=== PATIENT | female | born 1945 | race African-American/Black ===

== ENCOUNTER 2017-06-30 21:53 | Emergency (ER) | payer OTHER ==
[~2017-06-30] VITALS: Ht 165.1 cm; Wt 117.9 kg
[~2017-06-30 21:53] MED LIST: CYCLOBENZAPRINE10 MG ORAL; FERROUS SULFAT325 MG ORAL; IBUPROFEN600 MG ORAL; MECLIZINE HCL25 MG ORAL; NAPROXEN500 M2 ORAL; NORCO 5-325 TA1 EACH ORAL; PROAIR HFA8.5 GM INH; TRAMADOL HCL50 MG ORAL
[2017-06-30 22:00] VITALS: BP 128/70
--- NOTE | 2017-06-30 22:22 | Emergency Room Report ---
History of Present Illness General Chief Complaint: General Complaint Source: Patient Present Illness HPI Is a 72-year-old female with a history of osteoarthritis of her knees. She has no history of diabetes or hypertension. She presents with chief complaint of bilateral ankle swelling for the last week. Worse with walking. Increasing pain because of it. No nausea no vomiting. No shortness of breath. No chest pain. No trauma. Allergies: Coded Allergies: LIDOCAINE (Verified Allergy, Unknown, 07/14/16) MORPHINE (Unverified Allergy, Unknown, 07/14/16) Uncoded Allergies: MORPHINE (Allergy, Unknown, 07/14/16) Patient History Past Medical History: see triage record, old chart reviewed Past Surgical History: other Pertinent Family History: none Social History: Denies: smoking Now: No Immunizations: other Reviewed Nursing Documentation: PMH: Agreed, PSxH: Agreed Nursing Documentation-PMH Hx Asthma: Yes Review of Systems Eye: Denies: eye pain, blurred vision ENT: Denies: ear pain, nose congestion, throat swelling Respiratory: Denies: cough, shortness of breath Cardiovascular: Denies: chest pain, palpitations Gastrointestinal: Denies: abdominal pain, diarrhea, nausea, vomiting Musculoskeletal: Reports: joint swelling, Denies: back pain, joint pain Skin: Denies: rash Neurological: Denies: headache, numbness Endocrine: Denies: increased thirst, increased urine Hematologic/Lymphatic: Denies: easy bruising All Other Systems: negative except mentioned in HPI Physical Exam Vital Signs Date Time Temp Pulse Resp B/P (MAP) Pulse Ox O2 Delivery O2 Flow Rate FiO2 06/30/17 22:05 98.1 78 16 122/76 98 Room Air vitals normal Sp02 EP Interpretation: reviewed, normal General Appearance: well appearing, no apparent distress, alert Head: normocephalic, atraumatic Eyes: bilateral eye PERRL, bilateral eye EOMI ENT: hearing grossly normal, normal pharynx Neck: full range of motion, supple, no meningismus Respiratory: chest non-tender, lungs clear, normal breath sounds Cardiovascular #1: regular rate, rhythm, no murmur Gastrointestinal: normal bowel sounds, non tender, no mass, no organomegaly, no bruit, non-distended Musculoskeletal: back normal, gait/station normal, normal range of motion, swelling - 1+ pitting edema to lower Ankle and feet bilaterally. Psychiatric: mood/affect normal Skin: warm/dry Medical Decision Making Diagnostic Impression: Primary Impression: Mild peripheral edema ER Course She here for edema. No evidence of DVT, CHF, ACS, PE to name a few. We'll discharge home. Lab Results Impression labs normal Last Vital Signs Date Time Temp Pulse Resp B/P (MAP) Pulse Ox O2 Delivery O2 Flow Rate FiO2 06/30/17 22:05 98.1 78 16 122/76 98 Room Air Status: improved Disposition: HOME, SELF-CARE Condition: Stable Scripts Furosemide* (LASIX*) 20 Mg Tablet 20 MG ORAL DAILY, #7 TAB Prov: NILSA DUNCAN M.D. 07/01/17 Additional Instructions: Followup with your Dr. in 7 days. Return is symptom worsen. NILSA DUNCAN M.D. Jun 30, 2017 22:22
[2017-06-30] MEDS ORDERED: Norco 5mg/325mg tab ORAL ONE (22:30)
[2017-06-30 23:00] LABS: APPEARANCE,URINE CLEAR; KETONES,URINE NEGATIVE (NEGATIVE); LEUKOCYTE ESTERASE ,URINE 1+ (NEGATIVE); NITRITE,URINE NEGATIVE (NEGATIVE); PH,URINE 5 (4.5-8.0); PROTEIN,URINE NEGATIVE (NEGATIVE); UROBILINOGEN,URINE NORMAL MG/DL (0.0-1.0)
[2017-06-30 23:07] LABS: RBC,URINE 0-2 /HPF (0 - 2); WBC,URINE 0-2 /HPF (0 - 2)
[2017-06-30 23:08] LABS: BACTERIA,URINE FEW /HPF; SQUAMOUS EPITHELIAL CELL,UR MODERATE /LPF (NONE/OCC)
[2017-06-30 23:42] LABS: BASOPHILS % (AUTO) 0.8 % (0.0-2.0); EOSINOPHILS % (AUTO) 2.7 % (0.0-3.0); LYMPHOCYTES % (AUTO) 32.7 % (20.0-45.0); MEAN CORPUSCULAR HEMOGLOBIN 32.3 PG (27.0-31.0); MEAN CORPUSCULAR HGB CONC 33.1 G/DL (32.0-36.0); MEAN CORPUSCULAR VOLUME 97 FL (80-99); MEAN PLATELET VOLUME 8.3 FL (6.5-10.1); MONOCYTES % (AUTO) 5.5 % (1.0-10.0); NEUTROPHILS % (AUTO) 58.4 % (45.0-75.0); PLATELET COUNT 246 K/UL (150-450); RED CELL DISTRIBUTION WIDTH 13.1 % (11.6-14.8); WHITE BLOOD COUNT 8.6 K/UL (4.8-10.8)
[2017-07-01] LABS: ANION GAP 13 (5-15); CARBON DIOXIDE 24 mEQ/L (20-30); CHLORIDE 105 mEQ/L (98-107); CREATININE 0.9 mg/dL (0.5-0.9); HEMOLYSIS 5; POTASSIUM 4.2 mEQ/L (3.4-4.9); SODIUM 142 mEQ/L (135-145)
[2017-07-01] MEDS ORDERED: FUROSEMIDE20 M1 ORAL (00:17)
[2017-07-01 00:23] VITALS: BP 118/68
== END 2017-07-01 00:23 | disposition home or self-care (01) ==
LOC: EMR 22:15
DX: R60.0 Localized edema (principal); Z88.6 Allergy status to analgesic agent; J45.909 Unspecified asthma, uncomplicated
CPT/HCPCS: 36415; 80048; 81001; 83880; 85025; 99283

== ENCOUNTER 2020-08-09 17:16 | Emergency (ER) | payer MEDICARE ==
[~2020-08-09] VITALS: Ht 162.6 cm; Wt 109.8 kg
[~2020-08-09 17:16] MED LIST changes: +FUROSEMIDE20 M1 ORAL
[2020-08-09 17:30] VITALS: BP 152/85
--- NOTE | 2020-08-09 17:30 | NUR ---
ED Nurse Note: Pt walked in from home c/o sternal chest pain radiating to right arm a couple hours ago, lasting 5-10 minutes. Pt was at rest when pain started. She reports her arm going numb and then having heart palpitations, lightheadedness, and tightening of the jaw. Pt denies pain now upon arrival. Respirations even and unlabored on room air. Vitals stable as documented. A+Ox4, speaking in complete sentences.
--- NOTE | 2020-08-09 17:40 | Emergency Room Report ---
History of Present Illness General Chief Complaint: Chest Pain Source: Patient Present Illness [facility] Disclaimer: Please note that this report is being documented using DRAGON technology. This can lead to erroneous entry secondary to incorrect interpretation by the dictating instrument. HPI: 75-year-old female presents for evaluation of chest pain. She describes a midsternal sharp chest pain that radiated down the right arm lasting approximately 5 minutes and then resolving. No symptoms at this time. Denied shortness of breath but did report diaphoresis lightheadedness and headache along with the chest pain and arm pain. She also felt palpitations after chest pain. She states she had difficulty moving the arm while experiencing the pain. She is returned to her baseline at this time. Has not had prior incidence of similar chest pain. No known history of cardiac disease according to patient. She denies any recent illness such as fever, chills, sore throat, nasal congestion, cough, shortness of breath, exertional dyspnea, nausea, vomiting or diarrhea. She was scheduled for an outpatient nuclear stress test in 2 days for surgical clearance prior to a knee replacement. Non-smoker. PMH: Obesity PSH: Denied Allergies: Morphine Social Hx: Non-smoker, denies alcohol or drug use Allergies: Coded Allergies: LIDOCAINE (Verified Allergy, Unknown, 07/14/16) MORPHINE (Unverified Allergy, Unknown, 07/14/16) Uncoded Allergies: MORPHINE (Allergy, Unknown, 07/14/16) COVID-19 Screening Contact w/high risk pt: No Experienced COVID-19 symptoms?: No COVID-19 Screening: Negative COVID-19 COVID-19 Testing Source: [place] Patient History Now: No Nursing Documentation-PMH Hx Hypertension: Yes Hx Asthma: Yes Review of Systems All Other Systems: negative except mentioned in HPI Physical Exam Vital Signs Date Time Temp Pulse Resp B/P (MAP) Pulse Ox O2 Delivery O2 Flow Rate FiO2 08/09/20 17:22 98.2 62 19 154/80 (104) 94 Room Air General: Awake and alert, no acute distress HEENT: NC/AT. EOMI. Cardiovascular: RRR. S1 and S2 normal. No murmur appreciated Resp: Normal work of breathing. No cough, wheezing or crackles appreciated Abdomen: Abdomen is soft, nondistended. Obese abdomen. Nontender Skin: Intact. No abrasions, laceration or rash over the exposed skin MSK: Normal tone and bulk. Moving all extremities. No obvious deformity. Neuro: Awake and alert. Mentating appropriately. Medical Decision Making Diagnostic Impression: Primary Impression: Chest pain ER Course This a 75-year-old female presenting for evaluation of sternal chest pain rating down the right arm earlier today now resolved. Differential includes was not limited to dehydration, angina, palpitations, electrolyte abnormality, arrhythmia, ACS, pneumonia, bronchitis, esophageal spasm, musculoskeletal chest wall pain, radiculopathy, GERD. EKG shows sinus bradycardia with slight left axis deviation but no ischemic changes are noted. Chest x-ray shows no infiltrate, normal cardiac silhouette and no other significant findings. Labs including troponin are unremarkable. Patient is remains chest pain-free with stable vital signs. I offered the patient admission for monitoring and stress t est however she stated that she is nervous about staying in the hospital and she is scheduled for outpatient stress test in 2 days she would like to return home at this time. According to heart score guidelines the patient is moderate risk for cardiac event because of her age, obesity and family history however I do feel and may be discharged tonight as she already has a stress test ordered. I was able to reach her PMD and he agreed that she may be discharged and he will see her first thing in the morning. He requested copies of EKG, chest x-ray and labs which I will provide in her discharge paperwork. I did discuss with patient strict return precautions. She understands and agrees with this treatment plan and is electing to return home at this time. Laboratory Tests Test 08/09/20 17:50 White Blood Count 10.2 K/UL (4.8-10.8) Red Blood Count 4.91 M/UL (4.20-5.40) Hemoglobin 14.9 G/DL (12.0-16.0) Hematocrit 47.0 % (37.0-47.0) Mean Corpuscular Volume 96 FL (80-99) Mean Corpuscular Hemoglobin 30.3 PG (27.0-31.0) Mean Corpuscular Hemoglobin Concent 31.7 G/DL (32.0-36.0) L Red Cell Distribution Width 13.8 % (11.6-14.8) Platelet Count 282 K/UL (150-450) Mean Platelet Volume 9.1 FL (6.5-10.1) Neutrophils (%) (Auto) 66.5 % (45.0-75.0) Lymphocytes (%) (Auto) 25.9 % (20.0-45.0) Monocytes (%) (Auto) 4.9 % (1.0-10.0) Eosinophils (%) (Auto) 2.0 % (0.0-3.0) Basophils (%) (Auto) 0.8 % (0.0-2.0) Sodium Level 139 MMOL/L (136-145) Potassium Level 4.1 MMOL/L (3.5-5.1) Chloride Level 104 MMOL/L (98-107) Carbon Dioxide Level 25 MMOL/L (21-32) Anion Gap 10 mmol/L (5-15) Blood Urea Nitrogen 17 mg/dL (7-18) Creatinine 0.8 MG/DL (0.55-1.30) Estimated Glomerular Filtration Rate > 60 mL/min (>60) Glucose Level 86 MG/DL (74-106) Calcium Level 10.2 MG/DL (8.5-10.1) H Total Bilirubin 0.5 MG/DL (0.2-1.0) Aspartate Amino Transferase (AST) 25 U/L (15-37) Alanine Aminotransferase (ALT) 21 U/L (12-78) Alkaline Phosphatase 131 U/L (46-116) H Troponin I 0.000 ng/mL (0.000-0.056) Total Protein 7.4 G/DL (6.4-8.2) Albumin 3.8 G/DL (3.4-5.0) Globulin 3.6 g/dL Albumin/Globulin Ratio 1.1 (1.0-2.7) EKG Diagnostic Results Troponin ordered: Yes When was troponin ordered?: Aug 09, 2020 EKG Time: 17:36 Rate: bradycardiac Rhythm: NSR ST Segments: no acute changes Other Impression Sinus rhythm, slight left axis, normal intervals, no ST segment changes. ASA given to the pt in ED: Yes Rhythm Strip Diag. Results Rhythm Strip Time: 17:36 EP Interpretation: yes Rate: 55 Rhythm: NSR, no PVC's, no ectopy Chest X-Ray Diagnostic Results Chest X-Ray Diagnostic Results : Chest X-Ray Ordered: Yes # of Views/Limited/Complete: 1 View Indication: Chest Pain EP Interpretation: Yes Interpretation: no consolidation, no effusion, no pneumothorax, no acute cardiopulmonary disease Impression: No acute disease Electronically Signed by: Electronically signed by Dr. Asim Curtis Last Vital Signs Date Time Temp Pulse Resp B/P (MAP) Pulse Ox O2 Delivery O2 Flow Rate FiO2 08/09/20 17:22 98.2 62 19 154/80 (104) 94 Room Air Disposition: HOME, SELF-CARE Condition: Stable Asim Curtis MD Aug 09, 2020 17:40
[2020-08-09] MEDS ORDERED: Aspirin Baby 81mg ORAL ONE (17:45)
--- NOTE | 2020-08-09 18:02 | NUR ---
ED Nurse Note: xray @ bedside
--- NOTE | 2020-08-09 18:04 | NUR ---
ED Nurse Note: pt's orthopedic surgeon: Reji Beard = [phone] internal med: Jaguar Bowen = [phone]
[2020-08-09 18:10] LABS: BASOPHILS % (AUTO) 0.8 % (0.0-2.0); HEMOGLOBIN 14.9 G/DL (12.0-16.0); LYMPHOCYTES % (AUTO) 25.9 % (20.0-45.0); MEAN CORPUSCULAR VOLUME 96 FL (80-99); MONOCYTES % (AUTO) 4.9 % (1.0-10.0); NEUTROPHILS % (AUTO) 66.5 % (45.0-75.0); PLATELET COUNT 282 K/UL (150-450); RED BLOOD COUNT 4.91 M/UL (4.20-5.40); RED CELL DISTRIBUTION WIDTH 13.8 % (11.6-14.8); WHITE BLOOD COUNT 10.2 K/UL (4.8-10.8)
[2020-08-09 18:22] LABS: ANION GAP 10 mmol/L (5-15); BLOOD UREA NITROGEN 17 mg/dL (7-18); CALCIUM 10.2 MG/DL (8.5-10.1); CARBON DIOXIDE 25 MMOL/L (21-32); CHLORIDE 104 MMOL/L (98-107); CREATININE 0.8 MG/DL (0.55-1.30); POTASSIUM 4.1 MMOL/L (3.5-5.1); SODIUM 139 MMOL/L (136-145)
[2020-08-09 18:26] LABS: ALANINE AMINOTRANSFERASE 21 U/L (12-78); ALBUMIN 3.8 G/DL (3.4-5.0); ALBUMIN/GLOBULIN RATIO 1.1 (1.0-2.7); ALKALINE PHOSPHATASE 131 U/L (46-116); ASPARTATE AMINO TRANSFERASE 25 U/L (15-37); BILIRUBIN,TOTAL 0.5 MG/DL (0.2-1.0)
[2020-08-09 18:57] VITALS: BP 148/81
--- NOTE | 2020-08-09 18:57 | NUR ---
ER DISCHARGE NOTE: Patient is cleared to be discharged per ERMD, pt is aox4, on room air, with stable vital signs. pt was given dc and prescription instructions, pt was able to verbalize understanding, pt id band and iv site removed without complications. pt is able to ambulate with steady gait. pt took all belongings.
--- NOTE | 2020-08-10 06:20 | Diagnostic Imaging Report ---
EXAM: XR Chest, 1 View CLINICAL HISTORY: CP TECHNIQUE: Frontal view of the chest. COMPARISON: No relevant prior studies available. FINDINGS: Lungs: Unremarkable. No consolidation. Pleural space: Unremarkable. No pneumothorax. Heart: Unremarkable. No cardiomegaly. Mediastinum: Unremarkable. Bones/joints: Unremarkable. IMPRESSION: No acute cardiac pulmonary disease.
== END 2020-08-09 18:57 | disposition home or self-care (01) ==
LOC: EMR 17:30
DX: R07.9 Chest pain, unspecified (principal); I10 Essential (primary) hypertension; Z88.6 Allergy status to analgesic agent; R00.2 Palpitations; R00.1 Bradycardia, unspecified
CPT/HCPCS: 36415; 71045; 80053; 84484; 85025; 93005; 99284